=== PATIENT | female | born 1960 | race Caucasian/White ===

== ENCOUNTER 2017-11-12 08:37 | Outpatient (CLI) | payer OTHER | END 2017-11-12 08:38 | disposition home or self-care (01) | LOC: BICMAMMO 08:37 | PROVIDERS: ATTEND Family Medicine | DX: Z12.31 Encounter for screening mammogram for malignant neoplasm of breast (principal) | CPT/HCPCS: 77063; 77067 ==

== ENCOUNTER 2022-12-17 15:16 | Outpatient (CLI) | payer BC | END 2022-12-17 15:17 | disposition home or self-care (01) | LOC: BICMAMMO 15:16 | PROVIDERS: ATTEND Family Medicine | DX: Z12.31 Encounter for screening mammogram for malignant neoplasm of breast (principal) | CPT/HCPCS: 77063; 77067 ==